=== PATIENT | male | born 2000 | race Caucasian/White ===

== ENCOUNTER 2022-04-11 09:01 | Emergency (ER) | payer OTHER, BC, SELFPAY ==
[2022-04-11 09:17] VITALS: BP 155/74; PULSE 82; RESP 16; TEMP 36.2; O2SAT 100
--- NOTE | 2022-04-11 10:17 | ED.SKABFB ---
HPI - Skin/Abscess/Foreign Bdy General Chief complaint: Skin/Abscess/Foreign Body Stated complaint: Laceration to Finger Time Seen by Provider: 04/11/22 09:20 Source: patient, RN notes reviewed and old records reviewed Mode of arrival: ambulatory Limitations: no limitations History of Present Illness HPI narrative: 21 year old male who presents to [facility] with complaints of laceration to his distal middle finger which occurred prior to arrivalwhen he was slicing tomatoes on slicer at work. Patient has 1 cm laceration to distal aspect of finger with no acute bleeding noted at this time. Patient denies any numbness of tingling to his middle finger left hand and full movement nted of finger. Patient is unsure if tetanus is up to date. MD complaint: laceration Onset (ago): hour(s) (prior to arrival) Tetanus up to date: unsure Location: L hand (distal middle finger) Severity scale (1-10): 2 Treatments prior to arrival: bandages Related Data Allergies Allergy/AdvReac Type Severity Reaction Status Date / Time No Known Allergies Allergy Unverified 04/11/22 09:56 Review of Systems Review of Systems: CONSTITUTIONAL: Denies fever, chills, or sweats. CARDIOVASCULAR: Denies chest pain, palpitations, or edema. RESPIRATORY: Denies cough or dyspnea. SKIN: Reports left distal middle finger which occurred when he was slicing tomatoes at work prior to arrival MUSCULOSKELETAL: Denies musculoskeletal pain NEUROLOGIC: Denies numbness, or weakness. All systems reviewed & are unremarkable except as noted in HPI and below PMFSH Past Medical History Medical History (Updated 04/17/22 @ 14:01 by Mabel Moreno NP) Hx of migraines Strep throat Surgical History Surgical History (Updated 04/17/22 @ 14:01 by Mabel Moreno NP) History of tonsillectomy Social History Social History (Updated 04/17/22 @ 14:00 by Mabel Moreno NP) Smoking status: Never smoker Alcohol intake: unknown Substance use type: does not use Living arrangements: with family Gender identity (if verbalized by the patient): Male Comments At time of signature, agree with nursing past medical, surgical, social and family history. There is no relevant family history pertinent to the presenting complaint Exam Narrative: GENERAL: Well-appearing, well-nourished, and in no acute distress. HEAD: Normocephalic, atraumatic. NECK: Supple.no lymphadenopathy CHEST: Clear to auscultation. No respiratory distress.SAO2 100% on room air HEART: Regular rate and rhythm. No murmur heard. Normal peripheral pulses. EXTREMITIES: Normal range of motion. No edema. SKIN: Warm, dry, no rash. 1cm laceration to distal left middle finger linear with single layer noted, no tingling or numbness to left middle finger, full mobility with bleeding controlled. NEURO: No focal deficits. Alert and oriented x3. Course Course Level of Care: Express Care Visit Vital Signs Vital signs: Vital Signs Temperature 36.2 C L 04/11/22 09:17 Pulse Rate 82 04/11/22 09:17 Respiratory Rate 16 04/11/22 09:17 Blood Pressure 155/74 H 04/11/22 09:17 Pulse Oximetry 100 04/11/22 09:17 Oxygen Delivery Room Air 04/11/22 09:17 Temperature 36.2 C L 04/11/22 09:17 Pulse Rate 82 04/11/22 09:17 Respiratory Rate 16 04/11/22 09:17 Blood Pressure 155/74 H 04/11/22 09:17 Pulse Oximetry 100 04/11/22 09:17 Oxygen Delivery Room Air 04/11/22 09:17 Procedures Laceration left middle finger: Date: 04/11/22 Time: 09:50 Site: other (distal middle finger) Side (If applicable): left Size (cm): 1 Description: linear Depth: simple, single layer Local Anesthetic: lidocaine 2% Amount of anesthesia used (mL): 2 Pre-repair: irrigated, irrigated extensively and other (cleansed with technicare) ====== Skin Level ====== Skin layer closed with: nylon Size (cm): 5-0 Number of sutures: 4
[2022-04-11] MEDS: TETANUS,DIPHTHERIA,AC PERTUSSIS ADULT (0.5 ML) BOOSTRIX IM (10:29)
== END 2022-04-11 10:40 | disposition home or self-care (01) ==
PROVIDERS: Emergency Provider Registered Nurse; PCP Nurse Practitioner Family
DX: S61.211A Laceration without foreign body of left index finger without damage to nail, initial encounter (principal); X58.XXXA Exposure to other specified factors, initial encounter; Z23 Encounter for immunization
CPT/HCPCS: 90471; 90715; 99203; G0463

== ENCOUNTER 2022-06-13 14:03 | Emergency (ER) | payer BC, SELFPAY ==
[2022-06-13 14:17] VITALS: BP 141/67; PULSE 67; RESP 16; TEMP 36.4; O2SAT 98
--- NOTE | 2022-06-13 14:48 | ED.GENADULT ---
HPI - General Adult General Chief complaint: Dizziness Stated complaint: Fatique/ Dizziness Time Seen by Provider: 06/13/22 14:58 Source: patient, RN notes reviewed and old records reviewed Mode of arrival: ambulatory Limitations: no limitations History of Present Illness HPI narrative: 22-year-old male presents to the [facility] with complaints fatigue and sinus congestion since Tuesday, 4 days. No treatment prior to right Related Data Allergies Allergy/AdvReac Type Severity Reaction Status Date / Time No Known Allergies Allergy Verified 06/13/22 14:20 Review of Systems Review of Systems: All systems reviewed & are unremarkable except as noted in HPI and below Constitutional: Constitutional: Reports no additional constitutional complaints Eyes: Eyes: Reports no additional eye complaints ENT: Reports as per HPI and Reports nasal congestion Cardiovascular: Cardiovascular: Reports no additional cardiovascular complaints, Denies chest pain and Denies dyspnea Respiratory: Respiratory: Reports no additional respiratory complaints, Denies chest congestion, Denies cough and Denies dyspnea Gastrointestinal: Gastrointestinal: Reports no additional gastrointestinal complaints, Denies abdominal pain, Denies nausea and Denies vomiting Musculoskeletal: Musculoskeletal: Reports no additional musculoskeletal complaints Integumentary/Breasts: Skin/Breast: Reports system reviewed and no additional complaints, except as docu Neurologic: Reports system reviewed and no additional complaints, except as documented Psychiatric: Psychiatric: Reports no additional psychiatric complaints Allergic/Immunologic: Allergic/Immunologic: Reports no additional allergic/immunologic complaints PMFSH Past Medical History Medical History Hx of migraines Strep throat Surgical History Surgical History History of tonsillectomy Social History Social History Smoking status: Never smoker Alcohol intake: unknown Substance use type: does not use Gender identity (if verbalized by the patient): Male Comments At the time of my signature, I reviewed and agree with the nursing past medical, surgical, social, and family history. There is no relevant family history pertinent to the patient complaint. Exam Const: General: cooperative, healthy appearing, comfortable, no acute distress, well developed, alert and well nourished Nutritional Appearance: well nourished and obese Orientation/consciousness: patient oriented x3 Limitations: no limitations HENMT: Head: normal to inspection Ears: hearing grossly normal bilaterally, external ears normal and TM abnormal with fluid behind the TM bilateral Face/Nose/Sinus: Normal external nose present, Normal nares present, Normal nasal mucous membranes and turbinates present and normal facial exam Face and sinus: normal facial exam Mouth: Yes Normal oral and palatal mucosa present, Yes lip normal and Yes moist mucous membranes Throat: posterior oropharynx normal and uvula midline Eyes: General: appearance normal, both eyes and all related structures Alignment and Position: alignment normal Periorbital: periorbital findings normal Conjunctivae: conjunctivae normal Pupils: Equal, round and reactive pupils present EOM: EOMs intact bilaterally Neck: Neck: normal visual inspection, full ROM, no lymphadenopathy and no meningeal signs Chest: Chest palpation & inspection: normal inspection of the chest Resp: Effort & Inspection: normal respiratory effort and able to speak in complete sentences Auscultation: clear to auscultation bilaterally, no crackles, no rales, no rhonchi and no wheezes Cardio: Rate: regular rate Rhythm: regular rhythm Back/Spine/Pelvis: Cervical Spine: cervical ROM normal Thoracic/Lumbar Spine: No thoracic spinal tendernes
== END 2022-06-13 15:08 | disposition home or self-care (01) ==
PROVIDERS: Emergency Provider Nurse Practitioner; PCP Nurse Practitioner Family
DX: J06.9 Acute upper respiratory infection, unspecified (principal); H65.03 Acute serous otitis media, bilateral
CPT/HCPCS: 99213; G0463